=== PATIENT | male | born 1940 | race Caucasian/White ===

== ENCOUNTER 2017-01-29 10:20 | Outpatient (CLI) | payer MEDICARE ==
--- NOTE | 2017-01-29 13:20 | CT ---
CT ABDOMEN AND PELVIS WITH CONTRAST: HISTORY: Right lower quadrant pain. K74.6, hepatic sclerosis; R10.31, right lower quadrant pain; R19.7, diarr hea. COMPARISON: None. FINDINGS: Lung bases are clear. No pericardial effusion. There is some mild hyperenhancement along the anterior gallbladder wall. Small fat-containing right- sided indirect inguinal hernia. There is mild increased fat of the mesentery of the sigmoid colon. Mild mucosal irregularity of the distal ileum and terminal ileum. Normal proximal small bowel rotation. Likely reactive periaortic lymph nodes. Focal ectasia of the infrarenal abdominal aorta measuring up to 2.7 x 2.9 cm for a length of 3.6 cm. Extensive atherosclerotic plaque throughout the aortoiliac system. The spleen is unremarkable. The hepatic contour is mildly nodular. Evaluation for hepatic mass is l imited on this examination. There is mild variceal development along the esophagus and of the stomach. There are some areas of submucosal fatty infiltration of the sigmoid colon. No hydronephrosis. Too small to characterize hypodensity present inferior pole left kidney. IMPRESSION: 1. No acute inflammatory process in the abdomen and pelvis. 2. Increased mesenteric fat in the sigmoid colon with a areas of submucosal fatty infiltration as we ll as irregularity of the mucosal of the terminal and cecal apex can be seen with chronic inflammator y bowel disease. 3. Hepatic cirrhosis with mild variceal development. 4. Focal hyperenhancement of the anterior wall of the gallbladder can be seen with adenomyomatosis. 5. Fat-containing right-sided intraarticular inguinal hernia. 6. Focal ectasia infrarenal abdominal aorta measuring 2.7 x 2.9 cm for a length of 3.6 cm. POS: [facility]
== END 2017-01-29 10:21 | disposition home or self-care (01) ==
LOC: CT 10:20
PROVIDERS: ATTEND Internal Medicine Gastroenterology
DX: K74.60 Unspecified cirrhosis of liver (principal); R10.31 Right lower quadrant pain; R19.7 Diarrhea, unspecified; K80.20 Calculus of gallbladder without cholecystitis without obstruction; K76.0 Fatty (change of) liver, not elsewhere classified; K40.90 Unilateral inguinal hernia, without obstruction or gangrene, not specified as recurrent; I77.811 Abdominal aortic ectasia
CPT/HCPCS: 74177

== ENCOUNTER 2017-02-01 11:02 | Day surgery (SDC) | payer MEDICARE ==
[2017-01-29 16:34] VITALS: BMI 24.0
--- NOTE | 2017-02-01 15:37 | OP ---
DATE OF PROCEDURE: 02/01/2017 PROCEDURE: Esophagogastroduodenoscopy with biopsy and colonoscopy with biopsy and snare polypectomy. PREOPERATIVE DIAGNOSES: Cirrhosis and chronic diarrhea and right lower quadrant abdominal pain. PROCEDURE IN DETAIL: Informed consent was obtained from the patient. He was sedated with total intr avenous anesthesia. The bite block was placed and the endoscope was advanced easily to the second po rtion of the duodenum and retroflexion was performed in the stomach. The esophagus was normal. The GE junction was normal. There was mild portal hypertensive gastropathy in the fundus of the stomach. The remainder of the gastric mucosa was normal. The pylorus and first and second portions of the d uodenum were normal. Random duodenal biopsies were taken to rule out celiac disease. The patient wa s turned around. Rectal exam was performed and was normal. The colonoscope was advanced well into t he terminal ileum. The mucosa of the terminal ileum was normal. The preparation quality was good. The ileocecal valve and appendiceal orifice were clearly identified. Random biopsies were taken from the ascending colon and sigmoid colon. An 8 mm flat polyp was removed from the ascending colon by s nare cautery polypectomy. A 5-6 mm sessile polyp was removed from the transverse colon by snare caut hugo polypectomy. The remainder of the colonic mucosa was normal. Retroflexed views in the rectum we re normal. IMPRESSION: 1. Mild portal hypertensive gastropathy. 2. Otherwise normal esophagogastroduodenoscopy. Duodenal biopsies taken to rule out celiac disease. 3. An 8 mm ascending flat polyp removed by hot snare. 4. A 5-6 mm transverse polyp removed by hot snare. 5. Otherwise, normal colonoscopy to the terminal ileum. Random biopsies were taken to rule out micr oscopic colitis. RECOMMENDATIONS: 1. Await histopathology. 2. Follow up in the office in a month. 3. Future surveillance colonoscopy to be determined based on pathology results and clinical status.
[2017-02-01] MEDS ORDERED: PHENYLEPHRINE-NS 100 MCG/ML 10 ML SYRINGE ONE (16:01)
[2017-02-01] MEDS ORDERED: Propofol 200 MG/20 ML VIAL ONE (16:01)
[2017-02-01] MEDS ORDERED: ePHEDrine/0.9% NaCl/PF SYRINGE 50 mg/10 ml ONE (16:01)
== END 2017-02-01 16:15 | disposition home or self-care (01) ==
LOC: SDC 11:02
PROVIDERS: ATTEND Internal Medicine Gastroenterology
PROC: 0DB98ZX Excision of Duodenum, Via Natural or Artificial Opening Endoscopic, Diagnostic (ICD-10-PCS; principal; 2017-02-01)
PROC: 0DBK8ZX Excision of Ascending Colon, Via Natural or Artificial Opening Endoscopic, Diagnostic (ICD-10-PCS; 2017-02-01)
PROC: 0DBL8ZX Excision of Transverse Colon, Via Natural or Artificial Opening Endoscopic, Diagnostic (ICD-10-PCS; 2017-02-01)
DX: D12.2 Benign neoplasm of ascending colon (principal); D12.3 Benign neoplasm of transverse colon; K31.89 Other diseases of stomach and duodenum; K76.6 Portal hypertension; K74.60 Unspecified cirrhosis of liver; I25.2 Old myocardial infarction; I25.10 Atherosclerotic heart disease of native coronary artery without angina pectoris; I48.91 Unspecified atrial fibrillation; E78.00 Pure hypercholesterolemia, unspecified; Z91.040 Latex allergy status; Z91.011 Allergy to milk products; Z91.010 Allergy to peanuts; Z91.013 Allergy to seafood; Z79.01 Long term (current) use of anticoagulants; Z79.899 Other long term (current) drug therapy; Z87.891 Personal history of nicotine dependence; Z85.46 Personal history of malignant neoplasm of prostate; Z95.1 Presence of aortocoronary bypass graft; Z98.42 Cataract extraction status, left eye; Z98.41 Cataract extraction status, right eye; Z98.890 Other specified postprocedural states
CPT/HCPCS: 88305; J2704